=== PATIENT | female | born 1975 | race African-American/Black ===

== ENCOUNTER 2019-06-04 05:43 | Inpatient (IN) | payer BC, OTHER ==
[~2019-06-04] VITALS: Ht 160 cm; Wt 54.9 kg
[~2019-06-04 05:43] MED LIST: ADULT LOW DOSE81 MG PO; ADVIL100 M2; AMOXICILLIN 50500 M1 PO; AUGMENTIN 875875 M1; AZITHROMYCIN 2250 MG PO; BACTROBAN CREAM30 G1 TOP; CLEOCIN HCL150 MG PO; DARVOCET-N 1001 EACH PO; DOXYCYCLINE 10100 MG PO; HUMALOG100 UNIT/1 SQ; HUMALOG100 UNIT/1 SUBQ; IBUPROFEN 600600 M1 PO; IBUPROFEN 800800 MG PO; K-DUR10 MEQ PO; LANTUS SC; LIPITOR 20 MG T20 M1 PO; MEDROLDOSEPACK PO; NEURONTIN 300300 M1 PO; NOVOLOG100 UNIT/M SUBQ; PROAIR HFA8.5 GM IH; TRAMADOL 50 MG50 MG PO; TUSSIONEX PENN473 ML PO; TYLENOL325 MG PO; ZOFRAN ODT4 MG PO
[2019-06-04 05:45] VITALS: BP 129/69
[2019-06-04] MEDS ORDERED: TERBINAFINE HC250 MG PO (05:54)
[2019-06-04] MEDS ORDERED: VITAMIN D350000 UNIT PO (05:54)
[2019-06-04 06:48] LABS: URINE BILIRUBIN NEGATIVE (Negative); URINE BLOOD NEGATIVE (Negative); URINE COLOR YELLOW; URINE GLUCOSE-RANDOM* 3+ (Negative); URINE KETONES NEGATIVE (Negative); URINE LEUKOCYTES-REFLEX NEGATIVE (Negative); URINE PROTEIN (DIPSTICK) NEGATIVE (Negative); URINE SPECIFIC GRAVITY 1.015 (1.005-1.035); URINE UROBILINOGEN 0.2 E.U./dl (0.2-1.0)
[2019-06-04 06:49] LABS: URINE NITRITE-REFLEX POSITIVE (Negative)
[2019-06-04 06:50] LABS: URINE CLARITY SL HAZY
--- NOTE | 2019-06-04 07:01 | NUR ---
THREE ATTEMPTS TO DRAW BLOOD WERE UNSUCCESSFUL, IV ESTABLISHED ON THE THIRD ATTEMPT , BUT WOULD NOT DRAW BLOOD. REPORT GIVEN TO CONNIE SILVERMAN.
[2019-06-04 07:07] LABS: CASTS None Seen /LPF (None Seen); SQUAMOUS 0-3 Few /LPF (0-3)
[2019-06-04 07:08] LABS: AMORPHOUS URATES Few /LPF (None Seen); URINE RBC None Seen /HPF (0-2); URINE WBC-REFLEX None Seen /HPF (0-5)
[2019-06-04 08:07] LABS: ABSOLUTE NEUTROPHILS 8.1 thou/uL (1.4-8.2); BASOPHILS 0.1 % (0.0-2.0); EOSINOPHILS 0.3 % (0.0-3.0); HEMATOCRIT 31.6 % (37.0-47.0); HEMOGLOBIN 10.5 gm/dL (12.0-15.0); LYMPHOCYTES 6.7 % (24.0-44.0); MCH 29.6 pg (26.0-34.0); MCHC 33.1 g/dL (28.0-37.0); MCV 89.4 fL (80.0-100.0); MONOCYTES 7.1 % (1.0-8.0); PLATELET COUNT 237 thou/uL (150-400); POLYS 85.8 % (36.0-66.0); RBC 3.54 mil/uL (4.20-5.00); RDW 14.5 % (10.5-14.5); WBC 9.5 thou/uL (4.0-11.0)
[2019-06-04 08:21] LABS: CALCIUM 8.8 mg/dL (8.5-10.1); CREATININE 0.9 mg/dL (0.6-1.0); POTASSIUM 3.6 mmol/L (3.5-5.1)
[2019-06-04 12:44] VITALS: BP 121/70
[2019-06-04 12:50] VITALS: BP 109/66
--- NOTE | 2019-06-04 12:59 | EKG ---
[address] [address] ELECTROCARDIOGRAM REPORT Name: DESTINY MEDINA CHRISTINA Room #: 349-I ADM IN M.R.#: [id number] Admission: 06/04/19 Attend Phys: Giovanna Joel MD Discharge: Date of : 73 Report #: [id number] THIS REPORT FOR: //name// [facility] [place], [place] ED Test Date: 2019-06-04 Test Time: 07:47:58 Pat Name: DESTINY MEDINA Department: Room: 349 Gender: F Ash Handler: [place] : 1975 Requested By: Juan Alberto Vaca Order Number: [id number] MD: Chai Denny Measurements Intervals [place] Rate: 118 P: 75 AR: 162 QRS: 14 QRSD: 83 T: 17 QT: 326 QTc: 457 Interpretive Statements Sinus tachycardia Otherwise normal tracing Compared to ECG 02/11/2015 03:38:04 No significant changes Electronically Signed On 06-04-2019 12:59:17 FLUID DESIGNER by Chai Denny [email or web address] <ELECTRONICALLY SIGNED> By: Chai Denny MD, [facility] 06/04/19 1259 0747 6 Chai Denny MD, FACC /EPI
[2019-06-04 13:15] VITALS: BP 122/79
--- NOTE | 2019-06-04 19:15 | NUR ---
Pt was admitted to [facility] from ED. Report was called to battery recharger-Radha. Pt rhythm is sinus tachycardia. Receiving respiratory treatments from RT. No respiratory distress noted. Dr Joel notified of elevated glucose and adjusted insulin orders. Report given to oncoming RN.
[2019-06-04 19:47] VITALS: BP 141/85
[2019-06-04 23:08] LABS: URINE BILIRUBIN NEGATIVE (Negative); URINE BLOOD NEGATIVE (Negative); URINE CLARITY CLEAR; URINE COLOR YELLOW; URINE GLUCOSE-RANDOM* 3+ (Negative); URINE KETONES NEGATIVE (Negative); URINE LEUKOCYTES NEGATIVE (Negative); URINE NITRITE POSITIVE (Negative); URINE PROTEIN (DIPSTICK) NEGATIVE (Negative); URINE SPECIFIC GRAVITY 1.015 (1.005-1.035); URINE UROBILINOGEN 0.2 E.U./dl (0.2-1.0)
[2019-06-04 23:24] LABS: CASTS None Seen /LPF (None Seen); MUCUS None Seen strn/LPF (None Seen); SQUAMOUS 0-3 Few /LPF (0-3); URINE RBC None Seen /HPF (0-2); URINE WBC 0-5 Rare /HPF (0-5)
[2019-06-04 23:25] LABS: BACTERIA 1-9 Few /HPF (None Seen); CRYSTALS None Seen /LPF (None Seen); YEAST Present (None Seen)
[2019-06-04 23:52] VITALS: BP 108/62
[2019-06-05 04:16] VITALS: BP 115/55
[2019-06-05 04:18] LABS: HEMATOCRIT 26.8 % (37.0-47.0); HEMOGLOBIN 8.6 gm/dL (12.0-15.0); MCH 29.3 pg (26.0-34.0); MCHC 32.3 g/dL (28.0-37.0); MCV 90.6 fL (80.0-100.0); RBC 2.96 mil/uL (4.20-5.00); RDW 14.3 % (10.5-14.5)
[2019-06-05 04:34] LABS: CALCIUM 8.1 mg/dL (8.5-10.1); CREATININE 0.7 mg/dL (0.6-1.0); MAGNESIUM 1.6 mg/dL (1.8-2.4); PHOSPHORUS 3.2 mg/dL (2.5-4.9); POTASSIUM 3.3 mmol/L (3.5-5.1)
--- NOTE | 2019-06-05 05:43 | NUR ---
ASSUMED CARE OF PATIENT AT 1900. VSS, AFEBRILE. UP AD JUAN F. BLOOD SUGARS UNDER BETTER CONTROL. RESTING WELL THROUGH THE NIGHT. CALLS OUT APPROPRIATELY. PROGRESSING TOWARDS POC GOALS.
[2019-06-05 07:30] VITALS: BP 120/72
--- NOTE | 2019-06-05 12:27 | NUR ---
PT WITH COUGH NOTED..SLIGHTLY PRODUCTIVE...LUNGS CLEAR AND DIMINISHED...RA SATS 99%..
--- NOTE | 2019-06-05 13:53 | NUR ---
INITIAL ASSESSMENT: Received consult to provide pt with info on AD. SW reviewed chart and spoke with nursing and attending physician. Pt was admitted from home due to pnuemonia. Pt is currently on IV abx. Pt with orders to be med/surg level of care. Pt may be transferred off of 3W later today. SW attempted to meet with pt at bedside. Pt currently in the shower. SW placed AD booklet on front of pt's chart for review. Per chart, pt is alert/orientated x 4. Pt lives at home with family. Pt with hx of DM. Pt's PCP is Dr. Maya Vance. No discharge needs identified at this time, but KEELY is available to assist as needed with discharge planning.
[2019-06-05 15:25] LABS: MAGNESIUM 1.9 mg/dL (1.8-2.4); POTASSIUM 4.2 mmol/L (3.5-5.1)
[2019-06-05 16:18] VITALS: BP 125/79
[2019-06-05 19:15] VITALS: BP 129/72
--- NOTE | 2019-06-06 01:28 | NUR ---
PT AOX4. PT HAS NO REPORTS OF PAIN OR SOA. PT REPORTS CONCERN WITH INCREASED TEMPERATURE, PRN TYLENOL GIVEN. PT EXPRESSES CONCERN WITH HEALING PROCESS. PROVIDED EDUCATION TO PT IN REGARDS TO HEALING PROCESS AND EXPECTED OUTCOMES OF TREATMENT. PT RECEPTIVE TO EDUCATION. PT TOLERATING FLUIDS WITHOUT ISSUE. PT INDEPENDENT WITH ADLS. EDEMA NOTED TO BLE. BLE ELEVATED WITH BILATERAL SCDS APPLIED. ENCOURAGED PT TO NOTIFY STAFF FOR ALL NEEDS. BED IN LOWEST POSITION, CALL LIGHT WITHIN REACH, BED ALARM ON. WILL CONTINUE TO MONITOR.
[2019-06-06 05:55] LABS: HEMATOCRIT 25.9 % (37.0-47.0); HEMOGLOBIN 8.4 gm/dL (12.0-15.0); MCH 29.4 pg (26.0-34.0); MCHC 32.7 g/dL (28.0-37.0); MCV 90.1 fL (80.0-100.0); RBC 2.87 mil/uL (4.20-5.00); RDW 14.4 % (10.5-14.5); WBC 10.3 thou/uL (4.0-11.0)
[2019-06-06 06:04] LABS: CALCIUM 8.2 mg/dL (8.5-10.1); CREATININE 0.7 mg/dL (0.6-1.0); MAGNESIUM 1.9 mg/dL (1.8-2.4); PHOSPHORUS 3.1 mg/dL (2.5-4.9); POTASSIUM 3.6 mmol/L (3.5-5.1)
[2019-06-06 07:28] VITALS: BP 120/75
[2019-06-06] MEDS ORDERED: CEFDINIR300 MG PO (09:21)
[2019-06-06] MEDS ORDERED: MUCINEX600 MG PO (09:21)
[2019-06-06 10:30] VITALS: BP 120/75
[2019-06-06 10:44] VITALS: BP 120/75
--- NOTE | 2019-06-06 10:49 | NUR ---
KEELY reviewed chart and spoke with nursing and attending physician. Pt was transferred to from and is medically stable to discharge home today. KEELY met with pt at bedside to discuss discharge plan. Pt states she needs a nebulizer for home, as she did not do breathing treatments prior to admission. KEELY discussed options for DME providers. No preference voiced. KEELY verified pt's home address and phone number. Will need script for nebulizer and medication for breathing treatments. KEELY faxed info to [facility] for review. KEELY provided pt with AD booklet for review. Pt states she will review document and then complete after discharge. Pt's family will provide transportation home. KEELY is following to finalize discharge.
[2019-06-06 10:51] VITALS: BP 120/75
[2019-06-06 11:03] VITALS: BP 120/75
[2019-06-06] MEDS ORDERED: PROAIR HFA8.5 GM INH (11:30)
[2019-06-06 12:57] LABS: ABSOLUTE NEUTROPHILS 7.9 thou/uL (1.4-8.2); BASOPHILS 0.3 % (0.0-2.0); EOSINOPHILS 1.2 % (0.0-3.0); HEMATOCRIT 29.9 % (37.0-47.0); HEMOGLOBIN 9.5 gm/dL (12.0-15.0); LYMPHOCYTES 20.9 % (24.0-44.0); MCHC 31.9 g/dL (28.0-37.0); MCV 91.1 fL (80.0-100.0); MONOCYTES 6.1 % (1.0-8.0); PLATELET COUNT 249 thou/uL (150-400); POLYS 71.5 % (36.0-66.0); RBC 3.29 mil/uL (4.20-5.00); RDW 14.7 % (10.5-14.5); WBC 11.1 thou/uL (4.0-11.0)
[2019-06-06] MEDS ORDERED: NEBULIZER MISCELL (13:04)
[2019-06-06] MEDS ORDERED: ACCUNEB SO1.25 MG/1 INH (13:04)
[2019-06-09 06:09] LABS: ADENOVIRUS Negative (Negative); INFLUENZA A Negative (Negative); INFLUENZA B Negative (Negative); METAPNEUMOVIRUS Negative (Negative); PARAINFLUENZA 1 Negative (Negative); PARAINFLUENZA 2 Negative (Negative); PARAINFLUENZA 3 Negative (Negative); RHINOVIRUS Negative (Negative); RSV A Positive (Negative); RSV B Negative (Negative)
--- NOTE | 2019-06-16 03:41 | H ---
[facility] [place] [address] HISTORY AND PHYSICAL Name: DESTINY MEDINA CHRISTINA Room #: 449-I [facility] IN M.R.#: [id number] Admission: 06/04/19 Attend Phys: Giovanna Joel MD Discharge: 06/06/19 Date of : 73 Report #: [id number] THIS REPORT FOR: //name// CC: Giovanna UMAÑA DATE OF SERVICE: 06/04/2019 PRIMARY CARE PHYSICIAN: Dr. Maya Umaña. EMERGENCY CONTACT: Her , Mr. Jared Hobbs at [phone]. CHIEF COMPLAINT: 1. Cold for the past 2 weeks. 2. Shortness of breath, significantly worse this morning. HISTORY OF PRESENT ILLNESS: The patient is a very pleasant 43-year-old female with a known history of diabetes mellitus type 2. Informs me that her started with some cold symptoms and he does smoke and has been having some URI and after that the patient started having some cold and upper respiratory infection and congestion, rhinorrhea and sinus pressure. The patient informs me that overall the sinus pressure and cold symptoms were getting better; however, then she started having some fever and shaking chills and she just would not be able to stop shaking last night when she had shaking chills. This morning, she had a fever of 100 degrees and since her shortness of breath was getting worse and along with the fever and shaking chills, it concerned the patient significantly and so she decided to come to the hospital for further evaluation. In the Emergency Room, she had a chest x-ray done, which indicated right lower lobe pneumonia and the patient received a normal saline bolus and after that her tachycardia resolved and with Tylenol fever had come down. The patient informs me that her shortness of breath is just a little bit better than when she came in. She denies any pleuritic chest pain associated with it and denies any sputum production or hemoptysis and she has not had any associated GI symptoms of nausea, vomiting or diarrhea. She, however, does deal with chronic constipation, but that has not changed in any way. The patient informs me that besides having upper respiratory infection and cold and shortness of breath and fever and chills, she is also being dealing with burning urination and significant discomfort and frequency and urgency of urination. She is unable to tell me the timeline for the urinary symptoms, but they have been troubling her as well. The patient informs me that review of systems is negative for any dizziness, lightheadedness, or syncopal episodes or any weakness, numbness of any part of the body. Denies any chest pain, orthopnea, paroxysmal nocturnal dyspnea or leg edema. The patient also denies any skin rash prior to her during this illness. PAST MEDICAL HISTORY: Significant for: [facility] [address] [place] [address] HISTORY AND PHYSICAL Name: CAROLDESTINY CHRISTINA Room #: 449-I [facility] IN .R.#: [id number] Admission: 06/04/19 Attend Phys: Giovanna Joel MD Discharge: 06/06/19 Date of : 73 Report #: [id number] 1. Type 1 diabetes mellitus. 2. Hyperlipidemia. 3. Onychomycosis of the right great toe actively being treated right now. ALLERGIES: THE PATIENT IS ALLERGIC TO. 1. DEMEROL. 2. PERCOCET. 3. OXYCONTIN. 4. OXYCODONE AND ALL OF THEM ARE BASICALLY CAUSES HER TO PASS OUT. CURRENT MEDICATIONS: 1. Lantus insulin. 2. NovoLog. 3. Aspirin 81 mg daily. 4. Lipitor 20 mg daily. 5. Terbinafine 250 mg p.o. daily. 6. Vitamin D. 7. Calcium. FAMILY HISTORY: Significant for mother with congestive heart failure. Father with complications of diabetes and sister with lung cancer and; she however, was a smoker. PERSONAL AND SOCIAL HISTORY: The patient is a lifetime nonsmoker, but has had secondhand smoke exposure as her smokes as well as her sister and father smoke as well. REVIEW OF SYSTEMS: Ten point review of system was done. Please see HPI above. PHYSICAL EXAMINATION: VITAL SIGNS: Temperature 37.8, heart rate 134, respiration 18, blood pressure 129/69, pulse oximeter 96% on room air at 5:45 a.m. when she presented to the Emergency Room. At the time of examination, the patient has heart rate of 113, respirations 19, blood pressure 121/70, and pulse oximeter 99% on room air. GENERAL: Alert and oriented to time, place and person, very pleasant 43-year-old female with a BMI 30.1 and appears ill, but is not in any acute cardiopulmonary distress. HEENT: Normocephalic, atraumatic. Pupils equally round, reactive to light and extraocular muscle movements are intact. Conjunctivae are clear. Sclerae are nonicteric. Both nares severely congested. No postnasal drip noted. No sinus tenderness elicited. NECK: Supple, no JVD, no lymphadenopathy. HEART: S1, S2, regular. Tachycardia noted. No murmur, no S3, no S4. LUNGS: Clear to auscultation except in the right base, the patient has coarse breath sounds with coarse crackles noted. No wheezing noted in both lung braga. No chest wall tenderness noted bilaterally, symmetrical chest expansion [facility] [address] [place] [address] HISTORY AND PHYSICAL Name: DESTINY MEDINA CHRISTINA Room #: 449-I [facility] IN M.R.#: [id number] Admission: 06/04/19 Attend Phys: Giovanna Joel MD Discharge: 06/06/19 Date of : 73 Report #: [id number] present. ABDOMEN: Soft, nontender, nondistended, normal active bowel sounds. EXTREMITIES: Without any edema. SKIN: All 4 extremities and gluteal region are intact without any skin breakdown and no rash noted. LABORATORY DATA AND X-RAYS: The patient has sodium of 140, potassium 3.6, chloride 104, bicarbonate 25, anion gap 11, BUN 12, creatinine 0.9. Estimated GFR 82, glucose of 298. Lactic acid 1.2, calcium 8.8. Troponin I less than 0.06. BNP is 26. D-dimer elevated at 2.49. WBCs is 9.5, hemoglobin 10.5, hematocrit 31.6. The patient has normal red cell indices, RDW is normal. Platelet count is 234. The patient has 85.8% segmented neutrophils, no bandemia noted. Influenza A and B are negative. Urinalysis with pH 6.5 and positive nitrites and 10-30 moderate bacteria known and 0-3 squamous epithelial cells per high power field and 3+ random glucose. Urine test is negative. Chest x-ray indicates medial right lung base infiltrate consistent with pneumonia and no evidence of pleural effusion noted. CT angiogram chest PE protocol was done by the ER provider and that indicated bilateral medial bibasilar consolidating infiltrates, multifocal bibasilar pneumonitis and pneumonia. ASSESSMENT AND PLAN: 1. Community-acquired pneumonia. 2. Type 1 diabetes mellitus. 3. Hyperlipidemia. 4. Obesity with body mass index of 30. 5. Secondhand smoke exposure. The patient wishes to be full code. DVT prophylaxis, we will use Lovenox and GI prophylaxis, we will use Pepcid. PLAN OF CARE: 1. For community-acquired pneumonia coverage, the patient will be started on Rocephin plus azithromycin. I would go ahead and order a respiratory viral panel as well as the patient has been dealing with cough and cold for the past 2 weeks and we will order a strep pneumo antigen as well as legionella antigen. We will admit the patient to critical care telemetry secondary to multifocal pneumonia and a type 1 diabetic with the patient clinically, the patient may worsen before she starts __ and get better. Discussed with the patient as well as with the nurse taking care of the patient. 2. Diabetes mellitus. We will go ahead and start sliding scale insulin as well as her home Lantus dose and they will send the medical records to the patient's primary care physician, Dr. Maya Umaña and the patient informs me that her DPOA is her in case she is unable to make a decision. The patient's [address] [address] HISTORY AND PHYSICAL Name: DESTINY MEDINA Room #: 449-I [facility] IN M.R.#: [id number] Admission: 06/04/19 Attend Phys: Giovanna Joel MD Discharge: 06/06/19 Date of : 73 Report #: [id number] pharmacist Sal Patrick and I have advised the patient that we will hold terbinafine antifungal medication until she is being treated for pneumonia and we can resume it once the patient is clinically more stable. <ELECTRONICALLY SIGNED> By: Giovanna Joel MD 06/16/19 0341 1239 1315 Giovanna Joel MD /nt
== END 2019-06-06 13:38 | disposition home or self-care (01) | DRG 195 ==
LOC: ER 05:43 → EROBS 11:49 → 3W 12:55 → 4W 06-05 19:48
PROVIDERS: Emergency Medicine; Hospitalist; ADMIT Internal Medicine
DX: J18.9 Pneumonia, unspecified organism (principal); E10.40 Type 1 diabetes mellitus with diabetic neuropathy, unspecified; E78.5 Hyperlipidemia, unspecified; E66.9 Obesity, unspecified; Z77.22 Contact with and (suspected) exposure to environmental tobacco smoke (acute) (chronic); Z88.6 Allergy status to analgesic agent; Z82.49 Family history of ischemic heart disease and other diseases of the circulatory system; Z83.3 Family history of diabetes mellitus; Z68.30 Body mass index [BMI] 30.0-30.9, adult; Z79.899 Other long term (current) drug therapy
CPT/HCPCS: 10040; 10879

== ENCOUNTER 2019-06-09 21:16 | Emergency (ER) | payer BC, OTHER ==
[~2019-06-09] VITALS: Ht 160 cm; Wt 77.1 kg
[~2019-06-09 21:16] MED LIST changes: +ACCUNEB SO1.25 MG/1 INH; +CEFDINIR300 MG PO; +MUCINEX600 MG PO; +NEBULIZER MISCELL; +PROAIR HFA8.5 GM INH; +TERBINAFINE HC250 MG PO; +VITAMIN D350000 UNIT PO
[2019-06-10 00:57] VITALS: BP 123/67
--- NOTE | 2019-06-10 10:48 | EKG ---
[address] [address] ELECTROCARDIOGRAM REPORT Name: MEDINADESTINYRUSSEL VASQUEZ [facility] [id number] Admission: 06/09/19 Attend Phys: Discharge: 06/10/19 Date of : 73 Report #: [id number] THIS REPORT FOR: //name// [facility] ED Test Date: 2019-06-09 Test Time: 22:51:57 Pat Name: DESTINY MEDINA Department: Room: Gender: F Banbury Operator: VY : 1975 Requested By: Meg Figueroa Order Number: [id number] MD: Ezio Flower Measurements Intervals [place] Rate: 97 P: 70 VA: 156 QRS: 30 QRSD: 86 T: 25 QT: 347 QTc: 441 Interpretive Statements Sinus rhythm Probable left atrial enlargement Compared to ECG 06/04/2019 07:47:58 Sinus tachycardia no longer present Electronically Signed On 06-10-2019 10:48:38 TIER TRUCK DRIVER by Ezio Flower [email or web address] <ELECTRONICALLY SIGNED> By: Ezio Flower MD 06/10/19 1048 2250 50 Ezio Flower MD /DALILA
== END 2019-06-10 00:58 | disposition home or self-care (01) ==
LOC: ER 21:16
DX: J18.9 Pneumonia, unspecified organism (principal); F41.9 Anxiety disorder, unspecified; E11.40 Type 2 diabetes mellitus with diabetic neuropathy, unspecified; E78.5 Hyperlipidemia, unspecified; Z88.5 Allergy status to narcotic agent; Z88.8 Allergy status to other drugs, medicaments and biological substances; Z79.82 Long term (current) use of aspirin; Z79.899 Other long term (current) drug therapy; Z79.4 Long term (current) use of insulin